=== PATIENT | male | born 1970 | race American Indian/Alaskan Native ===

== ENCOUNTER 2018-06-20 16:34 | Emergency (ER) | payer OTHER ==
--- NOTE | 2018-06-20 18:23 | Emergency Department Report ---
Chief Complaint: Headache Stated Complaint: SOB Time Seen by Provider: 06/20/18 18:22 - HPI History of Present Illness: on the way to work -1415 pt got sharp pain in back right eye and sob dizzy as well at current time feels sob no cig/etoh/drugs pmh none rx none psh none mom and dad a/w mse completed MSE screening note: Focused history and physical exam performed. Due to findings the following was ordered: ED Disposition for MSE Condition: Stable
[2018-06-20 18:26] VITALS: BP 129/88
[2018-06-20 19:16] LABS: Hematocrit 47.7 % (35.5-45.6); Hemoglobin 15.5 gm/dl (11.8-15.2); Mean Corpuscular HGB Conc 32 % (32-34); Mean Corpuscular Volume 90 fl (84-94); Platelet Count 185 K/mm3 (140-440); Red Blood Count 5.31 M/mm3 (3.65-5.03); Red Cell Distribution Width 13.9 % (13.2-15.2)
[2018-06-20 19:30] LABS: BUN/Creatinine Ratio 9; Blood Urea Nitrogen 10 mg/dL (9-20); Calcium 9.7 mg/dL (8.4-10.2); Hemolysis Index 2
--- NOTE | 2018-06-20 20:31 | XRay Report ---
PROCEDURE: XR CHEST ROUTINE 2V TECHNIQUE: PA and lateral chest radiographs were obtained. HISTORY: sob COMPARISONS: None. FINDINGS: Heart: Normal. Mediastinum/Vessels: Normal. Lungs/Pleural space: No infiltrate, effusion, or pneumothorax. Bony thorax: No acute osseous abnormality. IMPRESSION: No pulmonary infiltrates are identified. This document is electronically signed by Caryn Foreman MD., Jun 20 2018 08:29:45 PM ET
--- NOTE | 2018-06-20 22:10 | Emergency Department Report ---
ED General Adult HPI - General Chief complaint: Headache Stated complaint: SOB Time Seen by Provider: 06/20/18 18:22 Source: patient Mode of arrival: Ambulatory Limitations: No Limitations - History of Present Illness Initial comments: 48 year old -Turkmen male with no significant past medical history presents to the emergency department complaining of having a short exacerbation of chest discomfort associated with some presyncope and the sensation that he couldn't take a full breath. This was short-lived and has since and since since resolved. At associated with within the coughing, fever, chills, sweats, congestion, hemoptysis, hematemesis, hematochezia, trauma. Did have a dull headache with some discomfort behind his right eye, which is also resolved as well, has no ear pain or sore throat. Throat no ringing to the ear. Reports no foreign travel, no rashes. No calf pain, swelling. -: Sudden Severity scale (0 -10): 0 Worsens with: none Associated Symptoms: denies: chest pain, cough, diaphoresis, fever/chills, headaches, loss of appetite, malaise, shortness of breath, syncope, weakness Treatments Prior to Arrival: none - Related Data Allergies Allergy/AdvReac Type Severity Reaction Status Date / Time No Known Allergies Allergy Unverified 06/20/18 16:40 ED Review of Systems ROS: Stated complaint: SOB Other details as noted in HPI Constitutional: denies: chills, fever Eyes: denies: eye pain, eye discharge, vision change ENT: denies: ear pain, throat pain Respiratory: denies: cough, shortness of breath, wheezing Cardiovascular: chest pain. denies: palpitations Endocrine: no symptoms reported Gastrointestinal: denies: abdominal pain, nausea, diarrhea Genitourinary: denies: urgency, dysuria Musculoskeletal: denies: back pain, joint swelling, arthralgia Skin: denies: rash, lesions Neurological: denies: headache, weakness, paresthesias Psychiatric: denies: anxiety, depression Hematological/Lymphatic: denies: easy bleeding, easy bruising ED Past Medical Hx - Past Medical History Previous Medical History?: No - Surgical History Past Surgical History?: No - Social History Smoking Status: Never Smoker ED Physical Exam - General Limitations: No Limitations General appearance: alert, in no apparent distress, other (no distress, standing in room, eating a salad) - Head Head exam: Present: atraumatic, normocephalic - Eye Eye exam: Present: normal appearance, PERRL, EOMI Pupils: Present: normal accommodation - ENT ENT exam: Present: normal exam, normal orophraynx, mucous membranes moist, TM's normal bilaterally. Absent: mucous membranes dry - Neck Neck exam: Present: normal inspection, full ROM - Respiratory Respiratory exam: Present: normal lung sounds bilaterally. Absent: respiratory distress, wheezes, rales, chest wall tenderness, accessory muscle use, decreased breath sounds - Cardiovascular Cardiovascular Exam: Present: regular rate, normal rhythm, normal heart sounds. Absent: systolic murmur, diastolic murmur, rubs, gallop - GI/Abdominal GI/Abdominal exam: Present: soft, normal bowel sounds. Absent: distended, tenderness, guarding, rebound, hyperactive bowel sounds, hypoactive bowel sounds, organomegaly, mass, pulsatile mass - Rectal Rectal exam: Present: deferred - Extremities Exam Extremities exam: Present: normal inspection, normal capillary refill - Back Exam Back exam: Present: normal inspection, full ROM. Absent: CVA tenderness (R), CVA tenderness (L) - Neurological Exam Neurological exam: Present: alert, oriented X3, CN II-XII intact. Absent: normal gait, motor sensory deficit - Psychiatric Psychiatric exam: Present: normal affect, normal mood. Absent: depressed, anxious, flat affect, manic, suicidal ideation - Skin Skin exam: Present: warm, dry, intact, normal color. Absent: rash, cyanosis, diaphoretic, erythema, petechiae, pallor, abrasion ED Course Vital Signs 06/20/18 18:23 Temperature 98.2 F Pulse Rate 79 Respiratory 18 Rate Blood Pressure 129/88 [Right] O2 Sat by Pulse 99 Oximetry ED Medical Decision Making - Lab Data Result diagrams: 06/20/18 18:38 06/20/18 18:38 - Medical Decision Making 48-year-old relatively healthy -Turkmen male with no significant past medical history having an episode was described as unusual sensation to the chest and likely abnormal heart associated with the sensation that he was unable to take a complete deep breath. This was accompanied by a right-sided headache with some pain behind the right which also was short-lived. This happened around 2:00 this afternoon was present for a few moments as is now resolved and he wanted to get it evaluated make sure there is no no issue. His vital signs are stable. His labs all normal. Chest x-ray normal as well. Discussed with him the need to follow with a primary care provider as well as likely cardiology for definitive evaluations. He feels comfortable now, no heartburn, tolerating meals no acute distress, in good spirits is to follow to emerge department should this pain reemerge really feels his condition is worsening. Critical care attestation.: If time is entered above; I have spent that time in minutes in the direct care of this critically ill patient, excluding procedure time. ED Disposition Clinical Impression: Chest pain in adult Disposition: DC-01 TO HOME OR SELFCARE Is pt being admited?: No Does the pt Need Aspirin: No Condition: Stable Instructions: Chest Pain (ED) Additional Instructions: Please be sure 4 be sure to follow with cardiology as we discussed as you would likely need to follow-up for a possible stress test or Holter monitor. Referrals: [facility] [place] [Primary Care Provider] - 3-5 Days RAMO AUSTIN MD [Staff Physician] - 3-5 Days RAJAT CALZADA MD [Staff Physician] - 3-5 Days
== END 2018-06-20 22:19 | disposition home or self-care (01) ==
LOC: ED 16:34
DX: R07.89 Other chest pain (principal)
CPT/HCPCS: 36415; 71046; 80048; 84484; 85027; 93005; 93010